=== PATIENT | male | born 1955 | race Hispanic/Latino ===

== ENCOUNTER 2017-09-24 12:55 | Emergency (ER) | payer MEDICARE ==
[~2017-09-24] VITALS: Ht 180.3 cm; Wt 114.3 kg
[~2017-09-24 12:55] MED LIST: MACROBID 100 M100 MG
--- OUTSIDE RECORDS SUMMARY | 2017-09-24 12:58 | XMS REPORT | Clinical Summary ---
Author Author [facility] Organization [facility] Address Unknown Phone Unavailable Care Team Providers Care Fagoter Name Role Phone Maite Leon MD PCP Allergies Active Allergy Reactions Severity Noted Date Comments Adhesive Rash Low 09/07/2013 Paper tape causes redness, bruising, irritation. Paper tape causes redness, bruising, irritation. Amlodipine Other (See Comments) 03/18/2013 swelling Extreme sweating (dripping) Extreme sweating (dripping) Fluoxetine Other (See Comments) 05/03/2014 Delayed ejaculation Delayed ejaculation Delayed ejaculation Latex Hives 11/21/2016 Levofloxacin Hives High 09/07/2013 Muscle cramps in extremities And severe cramps Levofloxacin (Bulk) Hives High 12/28/2012 And severe cramps Tramadol Rash High 01/25/2016 Changes in balance, facial rash, diaphoresis Changes in balance, facial rash, diaphoresis Current Medications Prescription Sig. Disp. Refills Start End Date Status Date WELLBUTRIN XL 150 mg 24 Take 150 mg by mouth 01/19/20 Active hr tablet every morning. 16 diphenhydrAMINE Take 25 mg by mouth Active (BENADRYL) 25 mg tablet nightly as needed. For sleep ketoconazole (NIZORAL) 2 Apply 2 application Active % shampoo topically 2 (two) times a week. Apply to damp skin, lather, leave on 5 minutes, and rinse methotrexate 2.5 MG Take 15 mg by mouth once 3 02/05/20 Active tablet a week. 17 folic acid (FOLVITE) 1 MG Take 1 tablet by mouth 11 02/05/20 Active tablet daily. 17 aspirin (ECOTRIN) 81 MG Take 81 mg by mouth Active enteric coated tablet daily. finasteride (PROSCAR) 5 Take 5 mg by mouth daily. 08/06/19 Active mg tablet 18 losartan (COZAAR) 100 MG Take 100 mg by mouth 0 07/23/19 Active tablet daily. 18 metoprolol succinate XL Take 1 tablet (25 mg 90 tablet 0 08/08/19 Active (TOPROL XL) 25 mg 24 hr total) by mouth daily for 18 18 tablet 90 days. sertraline (ZOLOFT) 50 MG Take 1 tablet (50 mg 90 tablet 0 08/08/19 11/07/19 Active tablet total) by mouth daily for 18 18 90 days. glycopyrrolate (ROBINUL) Take 1 tablet (1 mg 90 tablet 1 08/11/19 Active 1 mg tablet total) by mouth daily for 18 18 90 days. celecoxib (CeleBREX) 200 Take 1 tab PO daily. 30 capsule 0 08/14/19 Active MG capsule 18 testosterone cypionate Inject 1 mg into the 0 08/12/19 Active (DEPOTESTOTERONE shoulder, thigh, or 18 CYPIONATE) 200 mg/mL buttocks every 14 injection (fourteen) days. XELJANZ XR 11 mg tablet Take 1 tablet by mouth 08/30/19 Active extended release 24 hr daily. 18 VOLTAREN 1 % gel APPLY TOPICALLY 4 TIMES A 3 08/12/19 Active DAY FOR 30 DAYS 18 PROSCAR 5 mg tablet Take 5 mg by mouth daily. 01/19/20 03/18/20 Discontin 16 17 ued COZAAR 100 mg tablet Take 100 mg by mouth 01/19/20 03/18/20 Discontin daily. 16 17 ued testosterone cypionate testosterone cypionate 09/04/19 Discontin 200 mg/mL kit 200 mg/ml soln 18 ued aspirin (ECOTRIN) 81 MG Take 81 mg by mouth. 11/27/19 Discontin enteric coated tablet 17 ued atenolol (TENORMIN) 25 MG Take 1 tablet by mouth 04/23/20 01/23/20 Discontin tablet daily. 16 17 ued fluocinonide (LIDEX) 0.05 Apply 1 application 11/22/19 Discontin % ointment topically 2 (two) times a 17 ued day. celecoxib (CeleBREX) 200 1 po daily. Workers' 30 capsule 0 08/13/19 04/08/20 Discontin MG capsule comp. 17 17 ued clindamycin (CLEOCIN) 300 Take 600 mg by mouth 3 11/15/19 Discontin MG capsule (three) times a day. 17 ued metroNIDAZOLE (FLAGYL) Take 500 mg by mouth 3 11/22/19 Discontin 500 MG tablet (three) times a day. 17 ued glycopyrrolate (ROBINUL) Take 1 tablet (1 mg 90 tablet 1 09/11/19 1 mg tablet total) by mouth 3 (three) 17 17 times a day for 30 days. ZANAFLEX 4 mg tablet Take 1 tablet (4 mg 30 tablet 3 09/11/19 Discontin total) by mouth nightly 17 17 ued as needed for muscle spasms for up to 30 days. tiZANidine (ZANAFLEX) 4 TAKE 1 TABLET BY MOUTH 90 tablet 3 10/03/19 11/22/19 Discontin MG tablet ONCE NIGHTLY NEEDED 17 17 ued glycopyrrolate (ROBINUL) Take 1 tablet (1 mg 270 tablet 1 10/22/19 01/20/20 1 mg tablet total) by mouth 3 (three) 17 17 times a day for 90 days. ENGERIX-B, PF, 20 mcg/mL ADM 1ML IM UTD 0 08/09/19 11/15/19 Discontin syringe 17 17 ued HYDROcodone-acetaminophen Take 15 mL by mouth every 11/27/19 12/11/19 (HYCET) 2.5-108.3 mg/5 mL 6 (six) hours as needed 17 17 solution for moderate pain for up to 14 days. Max Daily Amount: 60 mL HYDROcodone-acetaminophen TK 15 ML PO Q 4 H PRN P 0 12/18/19 Discontin (HYCET) 2.5-108.3 mg/5 mL 17 17 ued solution atenolol (TENORMIN) 25 MG Take 1 tablet (25 mg 90 tablet 0 01/23/20 04/16/20 Discontin tablet total) by mouth daily for 17 17 ued 90 days. ENGERIX-B, PF, 20 mcg/mL ADM 1ML IM UTD 0 02/05/20 02/15/20 Discontin syringe 17 17 ued predniSONE (DELTASONE) 5 Take 1 tablet by mouth 0 02/05/20 05/08/20 Discontin mg tablet daily. 17 17 ued sertraline (ZOLOFT) 50 MG Take 1 tablet (50 mg 30 tablet 1 02/15/20 02/15/20 Discontin tablet total) by mouth daily for 17 17 ued 30 days. sertraline (ZOLOFT) 50 MG TAKE 1 TABLET(50 MG) BY 90 tablet 0 04/24/20 Discontin tablet MOUTH DAILY 17 17 ued COZAAR 100 mg tablet Take 1 tablet (100 mg 90 tablet 1 03/18/2012/07 Discontin total) by mouth daily for 17 17 ued 90 days. PROSCAR 5 mg tablet Take 1 tablet (5 mg 90 tablet 1 03/18/20 Discontin total) by mouth daily for 17 17 ued 90 days. glycopyrrolate (ROBINUL) Take 1 tablet (1 mg 90 tablet 1 03/18/20 Discontin 1 mg tablet total) by mouth 3 (three) 17 17 ued times a day for 90 days. glycopyrrolate (ROBINUL) Take 1 tablet (1 mg 270 tablet 1 03/20/20 06/18/20 1 mg tablet total) by mouth 3 (three) 17 17 times a day for 90 days. losartan (COZAAR) 100 MG Take 1 tablet (100 mg 90 tablet 1 03/25/20 06/23/20 tablet total) by mouth daily for 17 17 90 days. finasteride (PROSCAR) 5 Take 1 tablet (5 mg 90 tablet 1 03/25/2011/07 mg tablet total) by mouth daily for 17 17 90 days. celecoxib (CeleBREX) 200 1 po bid x 5 days, then 1 36 capsule 0 05/07/20 Discontin MG capsule po daily. Workers comp 17 17 ued atenolol (TENORMIN) 25 MG TAKE 1 TABLET(25 MG) BY 90 tablet 0 04/28/20 Discontin tablet MOUTH DAILY 17 17 ued sertraline (ZOLOFT) 50 MG Take 1 tablet (50 mg 90 tablet 0 04/24/20 07/23/19 tablet total) by mouth daily for 17 18 90 days. metoprolol succinate XL Take 1 tablet (25 mg 30 tablet 1 04/28/20 (TOPROL XL) 25 mg 24 hr total) by mouth daily for 17 17 tablet 30 days. celecoxib (CeleBREX) 200 1 po daily 30 capsule 0 05/07/20 07/17/20 Discontin MG capsule 17 17 ued FLUVIRIN [id number] 45 mcg ADM 0.5ML IM UTD 0 04/11/20 06/05/20 Discontin (15 mcg x 3)/0.5 mL 17 17 ued suspension diclofenac (VOLTAREN) 1 % Apply topically 4 (four) 100 g 3 06/05/20 07/05/20 gel times a day for 30 days. 17 17 metoprolol succinate XL Take 1 tablet (25 mg 90 tablet 0 06/10/20 Discontin (TOPROL XL) 25 mg 24 hr total) by mouth daily for 17 18 ued tablet 90 days. celecoxib (CeleBREX) 200 Take 1 tab PO daily. 30 capsule 0 07/17/20 08/14/19 Discontin MG capsule 17 18 ued varicella-zoster Inject 0.5 mL into the 1 each 0 09/04/19 09/04/19 [id number], PF, (SHINGRIX, shoulder, thigh, or 18 18 PF,) 50 mcg/0.5 mL buttocks once for 1 dose. suspension for reconstitution Active Problems Problem Noted Date Arthrodesis malunion 08/07/2017 BPH (benign prostatic hyperplasia) 08/07/2017 Hives 08/07/2017 HTN (hypertension) 08/07/2017 Hypogonadism male 08/07/2017 Spinal stenosis of lumbar region 08/07/2017 Spondylosis of lumbar region without myelopathy or radiculopathy 04/08/2017 Acute right-sided low back pain without sciatica 06/18/2016 S/P plastic surgery 04/11/2016 Lumbar post-laminectomy syndrome 04/11/2016 Major depressive disorder, single episode, in partial remission 11/29/2015 Type 2 diabetes mellitus without complication 11/29/2015 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 Weight loss 12/27/2014 Aorto-iliac atherosclerosis 12/16/2014 Cellulitis and abscess 08/23/2014 Overview: Overview: ICD-10 Abdominal wound dehiscence 08/12/2014 Gynecomastia 09/24/2013 Abdominal pannus 09/22/2013 Pannus, abdominal 09/22/2013 Encounters Date Type Specialty Care Team Description 09/04/2017 Office Visit Internal Medicine Maite Leon MD Rheumatoid arthritis with positive rheumatoid factor, involving unspecified site (Primary Dx); Screening-pulmonary TB; Hypogonadism in male; Immunization due; Vitamin D deficiency 08/14/2017 Orders Only Internal Medicine Maite Leon MD Rheumatoid arthritis involving both hands with positive rheumatoid factor (Primary Dx); Pain of foot, unspecified laterality 08/14/2017 Refill Orthopedic Surgery Ludmila León, BHARAT 08/11/2017 Orders Only Internal Medicine Maite Leon MD 08/08/2017 Orders Only Internal Medicine Maite Leon MD 08/08/2017 Refill Internal Medicine Maite Leon MD 08/08/2017 Refill Internal Medicine Maite Leon MD 08/07/2017 Office Visit Orthopedic Surgery Juvencio Payne MD Lumbar post-laminectomy syndrome (Primary Dx); Arthrodesis malunion, subsequent encounter 08/07/2017 Orders Only Orthopedic Surgery Asuncion Wallace 07/17/2017 Refill Orthopedic Surgery Ldumila León, BHARAT 06/10/2017 Orders Only Internal Medicine Maite Leon MD 06/10/2017 Telephone Internal Medicine Aurora Teresa MA 06/05/2017 Office Visit Internal Medicine Maite Leon MD Essential hypertension (Primary Dx); Vitamin D deficiency; Pain in both hands; Need for Streptococcus pneumoniae vaccination 05/08/2017 Office Visit Orthopedic Surgery Juvencio Payne MD Lumbar post-laminectomy syndrome; Arthrodesis status 05/07/2017 Refill Orthopedic Surgery Juvencio Payne MD 04/28/2017 Orders Only Internal Medicine Maite Leon MD 04/25/2017 Telephone Internal Medicine Aurora Teresa MA 04/24/2017 Orders Only Internal Medicine Maite Leon MD 04/23/2017 Refill Internal Medicine Maite Leon MD 04/16/2017 Refill Internal Medicine Maite Leon MD 04/10/2017 [facility]iology Qi Ferrari MD Multinodular thyroid Encounter 04/08/2017 Office Visit Orthopedic Surgery Juvencio Payne MD Lumbar post-laminectomy syndrome (Primary Dx); Arthrodesis status; Spondylosis of lumbar region without myelopathy or radiculopathy 03/28/2017 Transcribe Access Qi Ferrari MD Multinodular thyroid Orders (Primary Dx) 03/25/2017 Orders Only Internal Maite Preciado MD 03/20/2017 Orders Only Internal Maite Preciado MD 03/18/2017 Telephone [facility] Julia Iversno LVN 03/17/2017 Office Visit Internal Medicine Maite Leon MD Essential hypertension (Primary Dx); Dysthymia; Hyperglycemia; Pure hypercholesterolemia; Bone disorder 02/14/2017 Office Visit Internal Medicine Maite Leon MD Rheumatoid arthritis with positive rheumatoid factor, involving unspecified site (Primary Dx); Reactive depression 02/14/2017 Refill Internal Maite Preciado MD 01/24/2017 Orders Only Internal Maite Preciado MD Rheumatoid arthritis with positive rheumatoid factor, involving unspecified site (Primary Dx) 01/22/2017 Office Visit Internal Medicine Maite Leon MD Hand pain, not arthralgia, unspecified laterality (Primary Dx); Acute pain of left shoulder; Weight gain 01/14/2017 Office Visit Orthopedic Surgery Juvencio Payne MD Arthrodesis status (Primary Dx); Lumbar post-laminectomy syndrome 12/17/2016 Office Visit Orthopedic Surgery Juvencio Payne MD Arthrodesis status (Primary Dx); Lumbar post-laminectomy syndrome; Pain of right hip joint 11/26/2016 Hospital General Surgery Jois Pratt MD Tonsillar hypertrophy Encounter 11/26/2016 Anesthesia General Surgery Dustin Najera Event MD 11/26/2016 Procedure Pass General Surgery 11/26/2016 Surgery General Surgery Josi Pratt MD TONSILLECTOMY 11/14/2016 Office Visit Internal Medicine Maite Leon MD Essential hypertension (Primary Dx); Screening for cardiovascular condition; Prostate cancer screening; Non morbid obesity due to excess calories 10/21/2016 Orders Only Internal Maite Preciado MD 10/21/2016 Refill Internal Maite Preciado MD 10/10/2016 Office Visit Orthopedic Surgery Juvencio Payne MD Arthrodesis status (Primary Dx); Lumbar post-laminectomy syndrome 10/02/2016 Refill Internal Medicine Maite Leon MD after 09/23/2016 Immunizations Name Dates Previously Given Next Due Hep B, Unspecified 06/24/2016 Hepatitis B 02/04/2017, 08/09/2016, 06/08/2016 INFLUENZA QUAD 04/08/2016, 04/03/2015, 05/03/2014 INFLUENZA QUAD PF 08/18/2013 Influenza Trivalent 04/11/2017, 05/29/2016, 04/08/2016 Pneumococcal Conjugate 04/08/2016 13-Valent Pneumococcal 06/05/2017, 05/29/2016 Polysaccharide Tetanus 01/31/2012 Family History Medical History Relation Name Comments Esophagitis Father vein disorder Hypertension Father Hypertension Mother No Known Problems Sister Obesity Sister Thyroid nodules Sister Relation Name Status Comments Father (Age 52) Mother Alive Sister Alive Sister Alive Social History Tobacco Use Types Packs/Day Years Used Date Former Smoker Cigarettes 1 5 Quit: 07/21/1991 Smokeless Tobacco: Never Used Comments: smoked for 4-5 years Alcohol Use Drinks/Week oz/Week Comments Yes social beer Sex Assigned at Date Recorded Not on file Last Filed Vital Signs Vital Sign Reading Time Taken Blood Pressure 122/76 09/04/2017 11:16 AM [employer] Pulse 77 09/04/2017 11:16 AM [employer] Temperature 36.8 C (98.2 F) 09/04/2017 11:16 AM [employer] Respiratory Rate 16 09/04/2017 11:16 AM [employer] Oxygen Saturation 98% 09/04/2017 11:16 AM [employer] Inhaled Oxygen - - Concentration Weight 108 kg (239 lb) 09/04/2017 11:16 AM [employer] Height 180.3 cm (5' 11") 09/04/2017 11:16 AM [employer] Body Mass Index 33.33 09/04/2017 11:16 AM [employer] Plan of Treatment Date Type Specialty Care Team Description 11/06/2017 Office Visit Orthopedic Surgery Juvencio Payne MD [address] [facility] [address] [place] [address] 12/02/2017 Office [place] [address] [place] [address] Health Maintenance Due Date Last Done Comments FOOT EXAM 10/18/1967 OPHTHALMOLOGY EXAM 10/18/1967 URINE MICROALBUMIN 10/18/1967 COLONOSCOPY 02/12/2023 02/12/2013 INFLUENZA VACCINE Completed 04/11/2017, 05/29/2016, 04/08/2016, Additional history exists Procedures Procedure Name Priority Date/Time Associated Diagnosis Comments CA AN ELECTIVE Routine 11/26/2016 ENDOTRACHEAL AIRWAY 10:48 AM CDT Procedure Note - Jodi Gutierrez - 11/26/2016 10:47 AM CDT Airway Date/Time: 11/26/2016 10:21 AM Performed by: DUSTIN NAJERA Authorized by: DUSTIN NAJERA Location: OR Urgency: Elective Difficult Airway: No Other Anesthesia Staff: JODI GUTIERREZ Preoxygena rambo with 100% O2: Yes Mask Ventilatio n: Easy mask (easy BMV w/ OA) Final Airway Type: Endotrache al airway Final Endotrache al Airway: RAOUL tube Cuffed: Yes Technique Used: Direct laryngosco py Insertion Site: Oral Blade Type: Moraima Laryngosco pe Blade/Vide olaryngosc ope Blade Size: 3 Cuff at minimum occlusion pressure: Yes Measured from: Lips ETT to Lips (cm): 22 Placement Verified by: CO2 detection, direct visualizat ion and equal breath sounds Laryngosco pic view: Grade I - full view of glottis Rapid Sequence Induction (RSI): No Number of Attempts at Approach: 1 UVULOPALATOPHARYNGOPLASTY 11/26/2016 BARBARA (obstructive sleep (UPPP) 9:30 AM CDT apnea) TONSILLECTOMY 11/26/2016 BARBARA (obstructive sleep 9:30 AM CDT apnea) after 09/23/2016 Results * TB GOLD Quantiferon (09/04/2017 12:17 PM) Component Value Ref Range Quantiferon TB gold NEGATIVE NEGATIVE Comment: Negative test result. M. tuberculosis complex infection unlikely. Quantiferon NIL value 0.05 IU/mL Quantiferon mitogen NIL >10.00 IU/mL value Quantiferon TB NIL value 0.03 IU/mL Comment: The Nil tube value is used to determine if the patient has a preexisting immune response which could cause a false-positive reading on the test. In order for a test to be valid, the Nil tube must have a value of less than or equal to 8.0 IU/mL. The mitogen control tube is used to assure the patient has a healthy immune status and also serves as a control for correct blood handling and incubation. It is used to detect false-negative readings. The mitogen tube must have a gamma interferon value of greater than or equal to 0.5 IU/mL higher than the value of the Nil tube. The TB antigen tube is coated with the M. tuberculosis specific antigens. For a test to be considered positive, the TB antigen tube value minus the Nil tube value must be greater than or equal to 0.35 IU/mL. For additional information, please refer to http://education.Spacious App.SEC Watch/faq/QFT (This link is being provided for informational/ educational purposes only.) Specimen Performing Laboratory [facility] * Vitamin D 25 hydroxy level (09/04/2017 12:17 PM) Only the most recent of 2 results within the time period is included. Component Value Ref Range Vitamin D, 25-hydroxy 38 30 - 100 ng/mL Comment: Vitamin D Status 25-OH Vitamin D: Deficiency: <20 ng/mL Insufficiency: 20 - 29 ng/mL Optimal: > or=30 ng/mL For 25-OH Vitamin D testing on patients on D2-supplementation and patients for whom quantitation of D2 and D3 fractions is required, the QuestAssureD(TM) 25-OH VIT D, (D2,D3), LC/MS/MS is recommended: order code 83393 (patients >2yrs). For more information on this test, go to: http://education.Spacious App.SEC Watch/faq/GQY883 (This link is being provided for informational/educational purposes only.) Specimen Performing Laboratory [facility] * CBC with platelet and differential (09/04/2017 12:17 PM) Only the most recent of 2 results within the time period is included. Component Value Ref Range WBC 6.3 3.8 - 10.8 Thousand/uL RBC 4.87 4.20 - 5.80 Million/uL HGB 16.1 13.2 - 17.1 g/dL HCT 46.9 38.5 - 50.0 % MCV 96.3 80.0 - 100.0 fL MCH 33.1 (H) 27.0 - 33.0 pg MCHC 34.3 32.0 - 36.0 g/dL RDW 12.1 11.0 - 15.0 % Platelet count 385 140 - 400 Thousand/uL MPV 9.7 7.5 - 12.5 fL Neutrophils, absolute 3,389 1,500 - 7,800 cells/uL Lymphocytes, absolute 1,934 850 - 3,900 cells/uL Monocytes, absolute 548 200 - 950 cells/uL Eosinophils, absolute 391 15 - 500 cells/uL Basophils, absolute 38 0 - 200 cells/uL Neutrophils 53.8 % Lymphocytes 30.7 % Monocytes 8.7 % Eosinophils 6.2 % Basophils + RC 0.6 % Specimen Performing Laboratory [facility] * Comprehensive metabolic panel (09/04/2017 12:17 PM) Only the most recent of 3 results within the time period is included. Component Value Ref Range Glucose 84 65 - 99 mg/dL Comment: Fasting reference interval BUN, whole blood 15 7 - 25 mg/dL Creatinine 0.89 0.70 - 1.33 mg/dL Comment: For patients >49 years of age, the reference limit for Creatinine is approximately 13% higher for people identified as -Panamanian. EGFR Non-Afr. Panamanian 94 > OR=60 mL/min/1.73m2 EGFR 108 > OR=60 mL/min/1.73m2 BUN/creatinine ratio NOT APPLICABLE 6 - 22 (calc) Sodium 136 135 - 146 mmol/L Potassium 4.5 3.5 - 5.3 mmol/L Chloride 101 98 - 110 mmol/L CO2 28 20 - 31 mmol/L Calcium 9.4 8.6 - 10.3 mg/dL Protein 7.1 6.1 - 8.1 g/dL Albumin, S 4.0 3.6 - 5.1 g/dL Globulin, total 3.1 1.9 - 3.7 g/dL (calc) Albumin/globulin ratio 1.3 1.0 - 2.5 (calc) Total bilirubin 0.9 0.2 - 1.2 mg/dL Alkaline phosphatase 86 40 - 115 U/L AST 17 10 - 35 U/L ALT 13 9 - 46 U/L Specimen Performing Laboratory [facility] * Pneumococcal polysaccharide vaccine 23-valent greater than or equal to 2yo subcutaneous/IM (06/05/2017 11:11 AM) * Urinalysis, automated with microscopy (05/07/2017) Only the most recent of 2 results within the time period is included. Component Value Ref Range Color, UA DARK YELLOW YELLOW Appearance CLEAR CLEAR Specific gravity, urine 1.025 1.001 - 1.035 pH, urine 6.0 5.0 - 8.0 Glucose, urine NEGATIVE NEGATIVE Bilirubin, UA NEGATIVE NEGATIVE Ketones, UA NEGATIVE NEGATIVE Occult blood, urine NEGATIVE NEGATIVE Protein, UA NEGATIVE NEGATIVE Nitrite, UA NEGATIVE NEGATIVE Leukocyte esterase, UA NEGATIVE NEGATIVE WBC, UA NONE SEEN < OR=5 /HPF RBC, UA 0-2 < OR=2 /HPF Squamous epithelial NONE SEEN < OR=5 /HPF cells, UA Bacteria, UA NONE SEEN NONE SEEN /HPF Hyaline casts, UA NONE SEEN NONE SEEN /LPF Specimen Performing Laboratory [facility] * Sedimentation rate (05/07/2017) Only the most recent of 2 results within the time period is included. Component Value Ref Range Sedimentation rate 6 < OR=20 mm/h Specimen Performing Laboratory [facility] * Lipid panel (05/07/2017) Only the most recent of 2 results within the time period is included. Component Value Ref Range Cholesterol, total 191 <200 mg/dL HDL cholesterol 65 >40 mg/dL Triglycerides 106 <150 mg/dL LDL cholesterol 106 (H) mg/dL (calc) calculated Comment: Reference range: <100 Desirable range <100 mg/dL for patients with CHD or diabetes and <70 mg/dL for diabetic patients with known heart disease. LDL-C is now calculated using the Deshawn-Tong calculation, which is a validated novel method providing better accuracy than the Friedewald equation in the estimation of LDL-C. Deshawn SS et al. JANNA. 2013;310(19): 7061-5830 (http://education.Test.tv.SEC Watch/faq/YYO337) Cholesterol/HDL ratio 2.9 <5.0 (calc) Non-HDL cholesterol 126 <130 mg/dL (calc) Comment: For patients with diabetes plus 1 major ASCVD risk factor, treating to a non-HDL-C goal of <100 mg/dL (LDL-C of <70 mg/dL) is considered a therapeutic option. Specimen Performing Laboratory [facility] * US Thyroid (04/10/2017 2:20 PM) Specimen Performing Laboratory [facility] [address] [place] [id number] Narrative EXAMINATION:US THYROID CLINICAL HISTORY:E04.2 Nontoxic multinodular goiter, multinodular thyroid COMPARISON:Thyroid ultrasound August 26, 2016 Real-time ultrasound images performed. Permanent ultrasound images obtained for the patient's record. FINDINGS: Right thyroid lobe is enlarged to 7.9 cm x 3.6 cm x 4.5 cm. Right thyroid is considerably heterogeneous in appearance. There is a 1.5 cm hypoechoic solid nodule right posterior mid nodule. This is similar to previous. Numerous small subcentimeter nodules are stable as well. Left lobe thyroid 8.2 cm x 3.4 cm x 5.6 cm. The left lobe of the thyroid is considerably heterogeneous in appearance as on previous. 1.7 cm complex cystic nodule superior mid gland similar to previous. 1.0 cm complex nodule lateral mid gland similar to previous Numerous underlying small less than 1 cm nodules similar in appearance Isthmus 1.2 cm. Isthmus heterogeneous in appearance without definitive nodule IMPRESSION: Considerably enlarged goitrous thyroid similar in appearance to 08/26/2016. Stable bilateral nodules No new abnormalities Continued ultrasound follow-up recommended [id number] Procedure Note Hm Interface, Radiology Results Incoming - 04/10/2017 4:17 PM CDT EXAMINATION: US THYROID CLINICAL HISTORY: E04.2 Nontoxic multinodular goiter, multinodular thyroid COMPARISON: Thyroid ultrasound August 26, 2016 Real-time ultrasound images performed. Permanent ultrasound images obtained for the patient's record. FINDINGS: Right thyroid lobe is enlarged to 7.9 cm x 3.6 cm x 4.5 cm. Right thyroid is considerably heterogeneous in appearance. There is a 1.5 cm hypoechoic solid nodule right posterior mid nodule. This is similar to previous. Numerous small subcentimeter nodules are stable as well. Left lobe thyroid 8.2 cm x 3.4 cm x 5.6 cm. The left lobe of the thyroid is considerably heterogeneous in appearance as on previous. 1.7 cm complex cystic nodule superior mid gland similar to previous. 1.0 cm complex nodule lateral mid gland similar to previous Numerous underlying small less than 1 cm nodules similar in appearance Isthmus 1.2 cm. Isthmus heterogeneous in appearance without definitive nodule IMPRESSION: Considerably enlarged goitrous thyroid similar in appearance to 08/26/2016. Stable bilateral nodules No new abnormalities Continued ultrasound follow-up recommended [id number] * KOKI CASCADING REFLEX (01/22/2017 2:26 PM) Component Value Ref Range KOKI screen NEGATIVE NEGATIVE Comment: A negative KOKI Multiplex, with Reflex to 11 Antibody S[place]uma indicates the absence of detectable antibodies to component analytes consisting of double stranded DNA (dsDNA), chromatin, ribonucleoprotein (HYPERION ADMINISTRATOR), León/HYPERION ADMINISTRATOR (Sm/HYPERION ADMINISTRATOR), León (Sm), SS-A, SS-B, Shirin-1, centromere B, Scl-70 and ribosomal P. A negative result should be interpreted in the context of the clinical and laboratory findings and does not rule out autoimmune disease characterized by other autoantibody specificities such as rheumatoid arthritis, autoimmune hepatitis, primary biliary cirrhosis, autoimmune thyroiditis, [place]'s disease, pernicious anemia, autoimmune neuropathies, vasculitis, celiac disease, and bullous disease. Visit Physician FAQs for interpretation of all antibodies in the [place], prevalence, and association with diseases at [email or web address]://[email or web address]/ [email or web address]/[email or web address] Specimen Performing Laboratory [facility] * Cyclic citrullinated peptide antibody, IgG (01/22/2017 2:26 PM) Component Value Ref Range Cyclic citrullin peptide >250 (H) UNITS Ab Comment: Reference Range Negative: <20 Weak Positive: 20-39 Moderate Positive: 40-59 Strong Positive: >59 Specimen Performing Laboratory [facility] * Rheumatoid factor (01/22/2017 2:26 PM) Component Value Ref Range Rheumatoid factor 173 (H) <14 IU/mL Comment: Verified by repeat analysis. Specimen Performing Laboratory [facility] * C-reactive protein (01/22/2017 2:26 PM) Component Value Ref Range CRP 3.19 (H) <0.80 mg/dL Comment: Please be advised that patients taking Carboxypenicillins may exhibit falsely decreased C-Reactive Protein levels due to an analytical interference in this assay. Specimen Performing Laboratory [facility] * XR Hip 2-3 View Right (12/17/2016 5:00 PM) Specimen Performing Laboratory [facility] [address] [place] [address] Narrative X-ray of the right hip reveals a normal acetabular configuration and normal femoral head. No significant degenerative changes are noted. * XR Lumbar Spine 2 Or 3 Vw (12/17/2016 5:00 PM) Specimen Performing Laboratory [facility] [address] [place] [address] Narrative Lumbar spine x-rays demonstrate internal fixation devices at L3-L4. Postsurgical changes are noted from L4 to the sacrum. On the lateral view, the L2-3 disc is moderately degenerated and slightly narrowed more posteriorly than anteriorly * Surgical pathology request (11/26/2016 10:46 AM) Component Value Ref Range Surgical pathology report See link below for PDF Lab Report Specimen Performing Laboratory [facility] [address] [place] [address] * ECG 12 lead (11/21/2016 2:52 PM) Component Value Ref Range Ventricular rate 77 Atrial rate 77 CA interval 156 QRSD interval 88 QT interval 386 QTC interval 436 P axis 1 65 QRS axis 1 51 T wave axis 35 EKG impression Normal sinus rhythm-Normal ECG-No previous ECGs available- Specimen Performing Laboratory [facility] [address] [place] [id number] * Partial thromboplastin time, activated (11/21/2016 2:29 PM) Component Value Ref Range PTT 30.6 23.0 - 36.0 sec Comment: PTT therapeutic range for unfractionated heparin is 61.0-112.0 seconds which corresponds to Anti-Xa 0.3-0.7 U/ml. Specimen Performing Laboratory Blood [facility] AND [address] [place] [address] * Prothrombin time with INR (11/21/2016 2:29 PM) Component Value Ref Range Prothrombin time 14.1 12.0 - 15.0 sec INR 1.1 Comment: The International Normalized Ratio (INR) is a therapeutic monitoring tool for patients who are stable on oral anticoagulant therapy. An INR of 2.0-3.0 is suggested for deep vein thrombosis/pulmonary embolism. Specimen Performing Laboratory Blood [facility] AND [address] [place] [address] * Thyroid stimulating hormone (11/14/2016 11:09 AM) Component Value Ref Range TSH 0.56 0.40 - 4.50 mIU/L Specimen Performing Laboratory [facility] Narrative FASTING:YES * Prostate specific antigen (11/14/2016 11:09 AM) Component Value Ref Range PSA 1.7 < OR=4.0 ng/mL Comment: This test was performed using the Siemens chemiluminescent method. Values obtained from different assay methods cannot be used interchangeably. PSA levels, regardless of value, should not be interpreted as absolute evidence of the presence or absence of disease. Specimen Performing Laboratory [facility] Narrative FASTING:YES after 09/23/2016 Insurance Payer Benefit Subscriber ID Type Phone Address Plan / Group WORKERS COMP MISC xxxxx Workers WORKER'S Comp COMP AETNA MEDICARE AETNA xxxxxxxx HMO MEDICARE HMO/PPO [facility] Home: [id number] Workers Employer 1955 [place]: [place] [address] Home:
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
[2017-09-24 15:17] VITALS: BP 127/76
== END 2017-09-24 15:27 | disposition home or self-care (01) ==
LOC: ER 12:55
DX: M54.6 Pain in thoracic spine (principal); M54.5 Low back pain; S33.5XXA Sprain of ligaments of lumbar spine, initial encounter; V43.52XA Car driver injured in collision with other type car in traffic accident, initial encounter; Y92.481 Parking lot as the place of occurrence of the external cause
CPT/HCPCS: 72100; 99282

== ENCOUNTER 2018-05-03 03:05 | Emergency (ER) | payer MEDICARE ==
[~2018-05-03] VITALS: Ht 180.3 cm; Wt 114.3 kg
--- NOTE | 2018-05-03 05:02 | Diagnostic Imaging Report ---
Exam: Head CT without contrast History: Headache Comparison studies: None Technique: Axial images were obtained from the skull base to the vertex. Coronal and sagittal images reconstructed from the axial data. Dose modulation, iterative reconstruction, and/or weight based adjustment of the mA/kV was utilized to reduce the radiation dose to as low as reasonably achievable. Radiation dose: Total DLP: 921 mGy*cm. Estimated effective dose: DLP x 0.015 Intravenous contrast: None Findings: Scalp: No abnormalities. Bones: No fractures, blastic or lytic lesions. Brain sulci: Frontal sulci are mildly prominent. Remaining sulci are of normal limits for age. Ventricles: Mild compensatory dilatation of the frontal horns of the lateral ventricles. No hydrocephalus. Extra-axial spaces: No masses, no fluid collection. Parenchyma: No mass, acute hemorrhage or acute or chronic cortical vascular insults. Subtle hypodensity in the right parietal bolden radiata is nonspecific and may reflect age-indeterminate nonhemorrhagic lacunar insult or mild chronic microvascular ischemic changes.. Sellar/suprasellar region: No abnormalities. Craniocervical junction: Patent foramen magnum. No Chiari one malformation. IMPRESSION: 1. No acute intracranial hemorrhage or acute cortical vascular insults. 2. Age-indeterminate lacunar insult versus mild chronic microvascular ischemic changes in the right parietal bolden radiata. 3. Mild bifrontal volume loss. Signed by: Dr. Damien Li M.D. on 05/03/2018 4:59 AM
[2018-05-03 06:05] VITALS: BP 129/93
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
--- OUTSIDE RECORDS SUMMARY | 2018-05-05 13:54 | XMS REPORT | Clinical Summary ---
Author Author [employer] Address Unknown Phone Unavailable Care Team Providers Care Carrot Tier Name Role Phone Maite Leon MD PCP Allergies Active Allergy Reactions Severity Noted Date Comments Adhesive Rash Low 09/07/2013 Paper tape causes redness, bruising, irritation. Paper tape causes redness, bruising, irritation. Amlodipine Other (See Comments) Medium 03/18/2013 swelling Extreme sweating (dripping) Extreme sweating (dripping) Fluoxetine Other (See Comments) Medium 05/03/2014 Delayed ejaculation Delayed ejaculation Delayed ejaculation Latex Hives Medium 11/21/2016 Levofloxacin Hives High 09/07/2013 Muscle cramps [...] minutes, and rinse methotrexate 2.5 MG Take 7.5 mg by mouth once 3 02/05/20 Active tablet a week. 17 folic acid (FOLVITE) 1 MG Take 1 tablet by mouth 11 02/05/20 Active tablet daily. 17 aspirin (ECOTRIN) 81 MG Take 81 mg by mouth Active enteric coated tablet daily. testosterone cypionate Inject 1 mg into the 0 08/12/19 Active (DEPOTESTOTERONE shoulder, thigh, or 18 CYPIONATE) 200 mg/mL buttocks every 14 injection (fourteen) days. XELJANZ XR 11 mg tablet Take 1 tablet by mouth 08/30/19 Active extended release 24 hr daily. 18 finasteride (PROSCAR) 5 TAKE 1 TABLET BY MOUTH 90 tablet 0 02/10/20 Active mg tablet EVERY DAY 18 sertraline (ZOLOFT) 50 MG TAKE 1 TABLET BY MOUTH 90 tablet 0 02/10/20 Active tablet ONCE A DAY 18 metoprolol succinate XL TAKE 1 TABLET BY MOUTH 90 tablet 0 02/14/20 Active (TOPROL-XL) 25 mg 24 hr EVERY DAY 18 tablet glycopyrrolate (ROBINUL) TAKE 1 TABLET BY MOUTH 270 tablet 0 02/17/20 Active 1 mg tablet THREE TIMES A DAY 18 ammonium lactate Apply 2 application 1 01/17/20 Active (AMLACTIN) 12 % cream topically daily. 18 diclofenac sodium 3 % gel Apply 4 application 02/26/20 Active topically 4 (four) times 18 a day. Both hands, both ankles chlorhexidine (PERIDEX) SWISH AND SPIT 10 ML BY 3 02/14/20 Active 0.12 % solution MOUTH TWICE A DAY FOR 2 18 MINUTES losartan (COZAAR) 100 MG TAKE 1 TABLET BY MOUTH 90 tablet 0 04/01/20 Active tablet EVERY DAY 18 testosterone cypionate testosterone cypionate 09/04/19 Discontin 200 mg/mL kit 200 mg/ml soln 18 ued predniSONE (DELTASONE) 5 Take 1 tablet by mouth 0 02/05/20 05/08/20 Discontin mg tablet daily. 17 17 ued glycopyrrolate (ROBINUL) Take 1 [...] 1 tablet (5 mg 90 tablet 1 03/25/20 06/23/20 mg tablet total) by mouth daily for 17 17 90 days. celecoxib (CeleBREX) 200 1 po bid x 5 days, then 1 36 capsule 0 04/08/20 05/07/20 Discontin MG capsule po daily. Workers comp 17 17 ued sertraline (ZOLOFT) 50 MG Take 1 tablet (50 mg 90 tablet 0 04/24/20 07/23/19 tablet total) by mouth daily for 17 18 90 days. metoprolol succinate XL Take 1 tablet (25 mg 30 tablet 1 04/28/20 05/28/20 (TOPROL XL) 25 mg 24 hr total) by mouth daily for 17 17 tablet 30 days. celecoxib (CeleBREX) 200 1 po daily 30 capsule 0 05/07/20 07/17/20 Discontin MG capsule 17 17 ued FLUVIRIN [id number] 45 mcg ADM 0.5ML IM UTD 0 04/11/20 06/05/20 Discontin (15 mcg x 3)/0.5 mL 17 17 ued suspension diclofenac (VOLTAREN) 1 % Apply topically 4 (four) 100 g 3 06/05/20 07/05/20 gel times a day for 30 days. 17 17 metoprolol succinate XL Take 1 tablet (25 mg 90 tablet 0 06/10/20 08/08/19 Discontin (TOPROL XL) 25 mg 24 hr total) by mouth daily for 17 18 ued tablet 90 days. celecoxib (CeleBREX) 200 Take 1 tab PO daily. 30 capsule 0 07/17/20 08/14/19 Discontin MG capsule 17 18 ued finasteride (PROSCAR) 5 Take 5 mg by mouth daily. 08/06/19 10/25/19 Discontin mg tablet 18 18 ued losartan (COZAAR) 100 MG Take 100 mg by mouth 0 07/23/19 10/08/19 Discontin tablet daily. 18 18 ued metoprolol succinate XL Take 1 tablet (25 mg 90 tablet 0 08/08/19 11/19/19 Discontin (TOPROL XL) 25 mg 24 hr total) by mouth daily for 18 18 ued tablet 90 days. sertraline (ZOLOFT) 50 MG Take 1 tablet (50 mg 90 tablet 0 08/08/19 10/25/19 Discontin tablet total) by mouth daily for 18 18 ued 90 days. glycopyrrolate (ROBINUL) Take 1 tablet (1 mg 90 tablet 1 08/11/19 11/10/19 1 mg tablet total) by mouth daily for 18 18 90 days. celecoxib (CeleBREX) 200 Take 1 tab PO daily. 30 capsule 0 08/14/19 12/10/19 Discontin MG capsule 18 18 ued VOLTAREN 1 % gel APPLY TOPICALLY 4 TIMES A 3 08/12/19 12/10/19 Discontin DAY FOR 30 DAYS 18 18 ued varicella-zoster Inject 0.5 mL into the 1 each 0 09/04/19 09/04/19 [id number], PF, (SHINGRIX, shoulder, thigh, or 18 18 PF,) 50 mcg/0.5 mL buttocks once for 1 dose. suspension for reconstitution losartan (COZAAR) 100 MG TAKE 1 TABLET BY MOUTH 90 tablet 0 10/08/19 01/03/20 Discontin tablet EVERY DAY 18 18 ued finasteride (PROSCAR) 5 TAKE 1 TABLET BY MOUTH 90 tablet 0 10/25/19 01/24/20 Discontin mg tablet EVERY DAY 18 18 ued sertraline (ZOLOFT) 50 MG TAKE 1 TABLET BY MOUTH 90 tablet 0 10/25/19 01/24/20 Discontin tablet ONCE A DAY 18 18 ued metoprolol succinate XL TAKE 1 TABLET BY MOUTH 90 tablet 0 11/19/19 02/14/20 Discontin (TOPROL-XL) 25 mg 24 hr EVERY DAY 18 18 ued tablet glycopyrrolate (ROBINUL) TAKE 1 TABLET BY MOUTH 3 270 tablet 0 11/20/19 02/16/20 Discontin 1 mg tablet TIMES A DAY 18 18 ued losartan (COZAAR) 100 MG TAKE 1 TABLET BY MOUTH 90 tablet 0 01/03/20 04/01/20 Discontin tablet ONCE A DAY 18 18 ued butorphanol (STADOL) 10 1 spray intranasally q 6 2.5 mL 0 01/09/20 01/23/20 mg/mL nasal spray hours prn pain. 18 18 sertraline (ZOLOFT) 50 MG TAKE 1 TABLET BY MOUTH 90 tablet 0 01/24/20 03/02/20 Discontin tablet ONCE A DAY 18 18 ued finasteride (PROSCAR) 5 TAKE 1 TABLET BY MOUTH 90 tablet 0 01/24/20 03/02/20 Discontin mg tablet EVERY DAY 18 18 ued SHINGRIX, PF, 50 mcg/0.5 TO BE ADMINISTERED BY 0 01/17/20 03/02/20 Discontin mL suspension for PHARMACIST FOR 18 18 ued reconstitution IM IMMUNIZATION injection tiZANidine (ZANAFLEX) 2 Take 1 tablet (2 mg 30 tablet 1 03/02/20 04/01/20 MG tablet total) by mouth nightly 18 18 for 30 days. triamcinolone (KENALOG) Apply topically 2 (two) 30 g 0 03/02/20 03/23/20 0.1 % ointment times a day for 21 days. 18 18 butorphanol (STADOL) 10 1 spray into each nostril 2.5 mL 1 04/20/20 04/27/20 mg/mL nasal spray every 6 (six) hours as 18 18 needed for moderate pain for up to 7 days. Active Problems Problem Noted Date Status post spinal arthrodesis 12/09/2017 Arthrodesis malunion (HCC) 08/07/2017 BPH (benign prostatic hyperplasia) 08/07/2017 Hives 08/07/2017 HTN (hypertension) 08/07/2017 Hypogonadism male 08/07/2017 Spinal stenosis of lumbar region 08/07/2017 Spondylosis of lumbar region without myelopathy or radiculopathy 04/08/2017 Acute right-sided low back pain without sciatica 06/18/2016 S/P plastic surgery 04/11/2016 Lumbar post-laminectomy syndrome 04/11/2016 Major depressive disorder, single episode, in partial remission (HCC) 11/29/2015 Type 2 diabetes mellitus without complication (HCC) 11/29/2015 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 Weight loss 12/27/2014 Aorto-iliac atherosclerosis (HCC) 12/16/2014 Cellulitis and abscess 08/23/2014 Overview: Overview: ICD-10 Abdominal wound dehiscence 08/12/2014 Gynecomastia 09/24/2013 Abdominal pannus 09/22/2013 Pannus, abdominal 09/22/2013 Encounters Date Type Specialty Care Team Description 04/28/2018 Transcribe Access Qi Ferrari MD Nontoxic multinodular Orders goiter (Primary Dx) 04/20/2018 Telephone Orthopedic Surgery Belen Mohamud PA-C 04/01/2018 Refill Internal Medicine Maite Leon MD 03/11/2018 Office Visit Orthopedic Surgery Juvencio Payne MD Spondylosis of lumbar region without myelopathy or radiculopathy (Primary Dx); Status post spinal arthrodesis 03/02/2018 Office Visit Internal Medicine Maite Leon MD Chronic right-sided low back pain without sciatica (Primary Dx); Skin irritation 02/15/2018 Refill Internal Maite Preciado MD 02/13/2018 Refill Internal Maite Preciado MD 02/07/2018 Refill Internal Maite Preciado MD 01/23/2018 Refill Internal Maite Preciado MD 01/08/2018 Orders Only Orthopedic Surgery Belen Mohamud, PAMarcela 01/07/2018 Telephone Orthopedic Surgery Ludmila León RN 01/02/2018 Refill Internal Matie Preciado MD 12/10/2017 Abstract Orthopedic Surgery Juvencio Payne MD 12/09/2017 Office Visit Orthopedic Surgery Juvencio Payne MD Lumbar post-laminectomy syndrome (Primary Dx); Status post spinal arthrodesis; Arthrodesis malunion, subsequent encounter 12/02/2017 Office Visit Internal Maite Preciado MD Encounter for preventative adult health care exam with abnormal findings (Primary Dx); Essential hypertension; Thyroid nodule; Encounter for lipid screening for cardiovascular disease; Chest wall pain; Skin nodule 11/19/2017 Dianeill Internal Maite Preciado MD 11/18/2017 Refill Internal Maite Preciado MD 11/12/2017 Hospital Radiology Qi Ferrari MD Multinodular non-toxic Encounter goiter 11/08/2017 Transcribe Access Qi Ferrari MD Multinodular non-toxic Orders goiter (Primary Dx) 10/24/2017 Orders Only Internal Maite Preciado MD Thyroid nodule (Primary Dx) 10/24/2017 Refill Internal Maite Preciado MD 10/07/2017 Office Visit Orthopedic Surgery Juvencio Payne MD Postsurgical arthrodesis status (Primary Dx); Lumbar post-laminectomy syndrome 10/07/2017 Refill Internal Maite Preciado MD 09/29/2017 Orders Only Internal Medicine Maite Leon MD Chronic low back pain, unspecified back pain laterality, with sciatica presence unspecified (Primary Dx) 09/04/2017 Office Visit Internal Medicine Maite Leon [...] Surgery Asuncion Wallace 07/17/2017 Refill Orthopedic Surgery Ludmila León, BHARAT 06/10/2017 Orders Only Internal Medicine Maite Leon MD 06/10/2017 Telephone Internal Medicine Aurora Teresa MA 06/05/2017 Office Visit Internal Medicine Maite Leon MD Essential hypertension (Primary Dx); Vitamin D deficiency; Pain in both hands; Need for Streptococcus pneumoniae vaccination 05/08/2017 Office Visit Orthopedic Surgery Juvencio Payne MD Lumbar post-laminectomy syndrome; Arthrodesis status 05/07/2017 Refill Orthopedic Surgery Juvencio Payne MD after 05/02/2017 Immunizations Name Dates Previously Given Next Due Hep B, Unspecified 06/24/2016 Hepatitis B 02/04/2017, 08/09/2016, 06/08/2016 INFLUENZA QUAD 04/08/2016, 04/03/2015, 05/03/2014 INFLUENZA QUAD PF 08/18/2013 Influenza Trivalent 04/11/2017, 05/29/2016, 04/08/2016 Pneumococcal Conjugate 04/08/2016 13-Valent Pneumococcal 06/05/2017, 05/29/2016 Polysaccharide Tetanus 01/31/2012 Zoster Vaccine 01/16/2018, 11/06/2017, 11/06/2017 Recombinant Family History Medical History Relation Name Comments [...] Vital Sign Reading Time Taken Blood Pressure 134/88 03/02/2018 11:13 AM CDT Pulse 62 03/02/2018 11:13 AM CDT Temperature 36.8 C (98.3 F) 03/02/2018 11:13 AM CDT Respiratory Rate 16 03/02/2018 11:13 AM CDT Oxygen Saturation 99% 03/02/2018 11:13 AM CDT Inhaled Oxygen - - Concentration Weight 108 kg (238 lb) 03/11/2018 2:18 PM CDT Height 180.3 cm (5' 11") 03/02/2018 11:13 AM CDT Body Mass Index 33.19 03/11/2018 2:18 PM CDT Plan of Treatment Date Type Specialty Care Team Description 06/01/2018 Appointment Radiology Qi Ferrari MD [address] [place] [address] 06/17/2018 Office Visit Orthopedic Surgery Juvencio Payne MD [address] [facility] [address] [place] [id number] Health Maintenance Due Date Last Done Comments DIABETIC FOOT EXAM 10/18/1967 DIABETIC RETINAL EYE EXAM 10/18/1967 ZOSTER VACCINE 2017 INFLUENZA VACCINE 02/18/2018 04/11/2017, 05/29/2016, 04/08/2016, Additional history exists COLON CANCER SCREENING 03/15/2026 03/15/2016, 02/12/2013, 02/12/2013, Additional history exists SHINGRIX VACCINE Completed 01/16/2018, 01/16/2018, 11/06/2017, Additional history exists Procedures Procedure Name Priority Date/Time Associated Diagnosis Comments XR LUMBAR SPINE 2 OR 3 VW Routine 03/11/2018 Spondylosis of lumbar Results for this 2:23 PM CDT region without myelopathy procedure are in the or radiculopathy results section. T4, FREE Routine 12/02/2017 Thyroid nodule Results for this 9:17 AM CDT procedure are in the results section. URINALYSIS, AUTOMATED Routine 12/02/2017 Essential hypertension Results for this WITH MICROSCOPY 9:17 AM CDT procedure are in the results section. THYROID STIMULATING Routine 12/02/2017 Thyroid nodule Results for this HORMONE 9:17 AM CDT procedure are in the results section. LIPID PANEL Routine 12/02/2017 Encounter for lipid Results for this 9:17 AM CDT screening for procedure are in the cardiovascular disease results section. COMPREHENSIVE METABOLIC Routine 12/02/2017 Encounter for lipid Results for this PANEL 9:17 AM CDT screening for procedure are in the cardiovascular disease results section. CBC WITH PLATELET AND Routine 12/02/2017 Essential hypertension Results for this DIFFERENTIAL 9:17 AM CDT procedure are in the results section. MICROALBUMIN / CREATININE Routine 12/02/2017 Essential hypertension Results for this URINE RATIO 9:17 AM CDT procedure are in the results section. US THYROID Routine 11/12/2017 Multinodular non-toxic Results for this 1:10 PM CDT goiter procedure are in the results section. VITAMIN D 25 HYDROXY Routine 09/04/2017 Vitamin D deficiency Results for this LEVEL 12:17 PM REPAIR OPERATOR procedure are in the results section. TB GOLD QUANTIFERON Routine 09/04/2017 Rheumatoid arthritis with Results for this 12:17 PM REPAIR OPERATOR positive rheumatoid procedure are in the factor, involving results section. unspecified site Screening-pulmonary TB COMPREHENSIVE METABOLIC Routine 09/04/2017 Rheumatoid arthritis with Results for this PANEL 12:17 PM REPAIR OPERATOR positive rheumatoid procedure are in the factor, involving results section. unspecified site CBC WITH PLATELET AND Routine 09/04/2017 Rheumatoid arthritis with Results for this DIFFERENTIAL 12:17 PM REPAIR OPERATOR positive rheumatoid procedure are in the factor, involving results section. unspecified site PNEUMOCOCCAL Routine 06/05/2017 Need for Streptococcus POLYSACCHARIDE VACCINE 11:11 AM REPAIR OPERATOR pneumoniae vaccination 23-VALENT=>2YO SQ IM SEDIMENTATION RATE Routine 05/07/2017 Results for this 12:00 AM CDT procedure are in the results section. VITAMIN D 25 HYDROXY Routine 05/07/2017 Bone disorder Results for this LEVEL 12:00 AM CDT procedure are in the results section. LIPID PANEL Routine 05/07/2017 Pure hypercholesterolemia Results for this 12:00 AM CDT procedure are in the results section. URINALYSIS, AUTOMATED Routine 05/07/2017 Essential hypertension Results for this WITH MICROSCOPY 12:00 AM CDT procedure are in the results section. COMPREHENSIVE METABOLIC Routine 05/07/2017 Essential hypertension Results for this PANEL 12:00 AM CDT procedure are in the results section. after 05/02/2017 Results * XR Lumbar Spine 2 Or 3 Vw (03/11/2018 2:23 PM) Narrative Performed At [facility] Lumbar spine x-rays and 2 views today reveal internal fixation devices at the L3-L4 level.Fusion appears intact at those levels.Postoperative fusion material is seen distal to that area.On the right, there is a slight question of a bony defect in the bone graft material.Degenerative changes are noted cephalad to the operated levels with lateral osteophytes and slight disc space narrowing Performing Organization Address City/[facility] Phone Number MARY [address] [place] [address] * Microalbumin / creatinine urine ratio (12/02/2017 9:17 AM) Creatinine, urine, random 118 20 - 370 mg/dL [facility] Microalbumin, urine <0.2 See Note: mg/dL [facility] Comment: [place] Reference Range: Reference Range Not established Microalbumin/creatinine NOTE <30 mcg/mg creat [facility] ratio Comment: [place] The microalbumin value is less than 0.2 mg/dL therefore we are unable to calculate excretion and/or creatinine ratio. The ADA defines abnormalities in albumin excretion as follows: Category Result (mcg/mg creatinine) Normal <30 Microalbuminuria 30-299 Clinical albuminuria > CC=162 The ADA recommends that at least two of three specimens collected within a 3-6 month period be abnormal before considering a patient to be within a diagnostic category. Specimen Urine Other Results Text Performing Organization Information: Site ID: [id number] Address: [address] [place] [phone] Director: Amber Short Performing Organization Address City/[facility] Phone Number [employer] [facility] [address] [address] * Urinalysis, automated with microscopy (12/02/2017 9:17 AM) Only the most recent of 2 results within the time period is included. Color, UA DARK YELLOW YELLOW [facility] Appearance CLEAR CLEAR [facility] Specific gravity, urine 1.012 1.001 - 1.035 [facility] pH, urine 7.5 5.0 - 8.0 [facility] Glucose, urine NEGATIVE NEGATIVE [facility] Bilirubin, UA NEGATIVE NEGATIVE [facility] [place] Ketones, UA NEGATIVE NEGATIVE [facility] [place] Occult blood, urine NEGATIVE NEGATIVE [facility] [place] Protein, UA NEGATIVE NEGATIVE [facility] [place] Nitrite, UA NEGATIVE NEGATIVE [facility] [place] Leukocyte esterase, UA NEGATIVE NEGATIVE [facility] WBC, UA NONE SEEN < OR=5 /HPF [facility] RBC, UA NONE SEEN < OR=2 /HPF [facility] Squamous epithelial NONE SEEN < OR=5 /HPF [facility] cells, [facility] [place] Bacteria, UA NONE SEEN NONE SEEN /HPF [facility] Hyaline casts, UA NONE SEEN NONE SEEN /LPF [facility] Specimen Urine Other Results Text Performing Organization Information: Site ID: [id number] Name: [facility] Address: [address] [place] [id number] Director: Amber Short Performing Organization Address City/State/Zipcode Phone Number [place] [place] [address] * CBC with platelet and differential (12/02/2017 9:17 AM) Only the most recent of 2 results within the time period is included. WBC 5.8 3.8 - 10.8 Thousand/uL [facility] RBC 4.63 4.20 - 5.80 Million/uL [facility] HGB 15.7 13.2 - 17.1 g/dL [facility] HCT 45.8 38.5 - 50.0 % [facility] MCV 98.9 80.0 - 100.0 fL [facility] MCH 33.9 (H) 27.0 - 33.0 pg [facility] MCHC 34.3 32.0 - 36.0 g/dL [facility] RDW 11.9 11.0 - 15.0 % [facility] Platelet count 347 140 - 400 Thousand/uL [facility] MPV 9.9 7.5 - 12.5 fL [facility] Neutrophils, absolute 2,981 1,500 - 7,800 cells/uL [facility] Lymphocytes, absolute 1,868 850 - 3,900 cells/uL [facility] Monocytes, absolute 603 200 - 950 cells/uL [facility] Eosinophils, absolute 307 15 - 500 cells/uL [facility] Basophils, absolute 41 0 - 200 cells/uL [facility] [employer] [facility] Neutrophils 51.4 % [facility] [employer] [facility] Lymphocytes 32.2 % [facility] Monocytes 10.4 % [facility] Eosinophils 5.3 % [employer] [facility] Basophils + RC 0.7 % [facility] Specimen Blood Other Results Text Performing Organization Information: Site ID: [facility] Name: [facility] Address: [address] [place] [phone] Director: Amber Short Performing Organization Address [facility] Phone Number [facility] [employer] [address] [address] * Thyroid stimulating hormone (12/02/2017 9:17 AM) TSH 0.82 0.40 - 4.50 mIU/L [facility] Specimen Blood Other Results Text Performing Organization Information: Site ID: [facility] Name: [facility] Address: [address] [place] [phone] Director: Amber Short Performing Organization Address [facility] Phone Number [facility] [employer] [address] [address] * T4, free (12/02/2017 9:17 AM) T4, free 1.5 0.8 - 1.8 ng/dL [facility] Specimen Blood Other Results Text Performing Organization Information: Site ID: [facility] Name: [facility] Address: [address] [place] [phone] Director: Amber Short Performing Organization Address [facility] Phone Number [facility] [employer] [address] [address] * Lipid panel (12/02/2017 9:17 AM) Only the most recent of 2 results within the time period is included. Cholesterol, total 200 (H) <200 mg/dL [facility] HDL cholesterol 59 >40 mg/dL [facility] Triglycerides 101 <150 mg/dL [facility] LDL cholesterol 121 (H) mg/dL (calc) [facility] calculated Comment: [place] Reference range: <100 Desirable range <100 mg/dL for primary prevention; <70 mg/dL for patients with CHD or diabetic patients with > or=2 CHD risk factors. LDL-C is now calculated using the Benita calculation, which is a validated novel method providing better accuracy than the Friedewald equation in the estimation of LDL-C. Deshawn SS et al. JANNA. 2013;310(19): 5950-2492 (http://education.trueEX/faq/EPL756) Cholesterol/HDL ratio 3.4 <5.0 (calc) [facility] Non-HDL cholesterol 141 (H) <130 mg/dL (calc) [facility] Comment: [place] For patients with diabetes plus 1 major ASCVD risk factor, treating to a non-HDL-C goal of <100 mg/dL (LDL-C of <70 mg/dL) is considered a therapeutic option. Specimen Blood Other Results Text Performing Organization Information: Site ID: [id number] Name: [facility] Address: [address] [place] [phone] Director: Amber Short Performing Organization Address City/State/[place] [address] * Comprehensive metabolic panel (12/02/2017 9:17 AM) Only the most recent of 3 results within the time period is included. Glucose 102 (H) 65 - 99 mg/dL [facility] [employer] [facility] Comment: [place] Fasting reference interval For someone without known diabetes, a glucose value between 100 and 125 mg/dL is consistent with prediabetes and should be confirmed with a follow-up test. BUN, whole blood 10 7 - 25 mg/dL [facility] Creatinine 0.97 0.70 - 1.25 mg/dL [facility] Comment: [place] For patients >49 years of age, the reference limit for Creatinine is approximately 13% higher for people identified as -Moldovan. EGFR Non-Afr. [place] 84 > OR=60 mL/min/1.73m2 [facility] EGFR 98 > OR=60 mL/min/1.73m2 [facility] [employer] [facility] BUN/creatinine ratio NOT APPLICABLE 6 - 22 (calc) [facility] Sodium 138 135 - 146 mmol/L [facility] Potassium 4.5 3.5 - 5.3 mmol/L [facility] [employer] [facility] Chloride 99 98 - 110 mmol/L [employer] CO2 31 20 - 31 mmol/L [facility] Calcium 10.0 8.6 - 10.3 mg/dL [facility] Protein 6.8 6.1 - 8.1 g/dL [facility] Albumin, S 4.3 3.6 - 5.1 g/dL [facility] Globulin, total 2.5 1.9 - 3.7 g/dL (calc) [facility] Albumin/globulin ratio 1.7 1.0 - 2.5 (calc) [facility] Total bilirubin 1.7 (H) 0.2 - 1.2 mg/dL [facility] Alkaline phosphatase 75 40 - 115 U/L [facility] AST 22 10 - 35 U/L [facility] ALT 19 9 - 46 U/L [facility] Specimen Blood Other Results Text Performing Organization Information: Site ID: [id number]: [facility] Address: [address] [place] [phone] Director: Amber Short Performing Organization Address City/State/Zipcode Phone Number [facility] [employer] [place] [address] * US Thyroid (11/12/2017 1:10 PM) Narrative Performed At EXAMINATION:US THYROID [facility] CLINICAL HISTORY:E04.2 Nontoxic multinodular goiter, GOITER COMPARISON:April 10, 2017 FINDINGS: The right lobe is enlarged and heterogeneous it measures 8.4 x 4.1 x 4.0 cm. It is grossly heterogeneous. A nodule in the upper pole medially measures approximately 7 x 6 x 8 mm which is not significantly changed. This is consistent with a T-RADS 2 nodule which is not suspicious. A nodule in the mid right lobe posteriorly measures 1.9 x 1.4 x 1.7 cm which is slightly increased since previous previously measuring 1.7 cm in maximum dimension. Mixed cystic and solid areas are relatively well-circumscribed. It is wider than tall it is mixed hypo and isoechoic no punctate echogenic foci are identified. This is consistent with a TI-RADS 2 lesion which has a low level suspicion. There is a 1.6 cm isoechoic well-circumscribed nodule in the right lobe anteriorly in the midportion.. This is not as well imaged previously although given the gross heterogeneity of the gland and its very large size may have been present previously. It has mixed cystic and solid composition. It is hyperechoic to isoechoic it is relatively well-defined without well-defined calcifications. This is a T-RADS Category3 lesion and given its size short-term follow-up is recommended. The isthmus demonstrates a decrease in size from 2.2 to 1.7 cm in maximum dimension. This is a T RADS 3 lesion as well short-term follow-up is suggested The left lobe measures 8.6 x 3.6 x 5.0 cm. There is a 1.6 x 1.1 x 1.8 cm nodule in the midportion previously measuring 1.7 cm in maximum dimension. This is spongiform, isoechoic well-defined without calcifications is consistent with a T RADS 2 lesion. Another 1.1 cm nodule in the mid portions is also a tight RADS 2 lesion it is well-circumscribed spongiform in character without worrisome features. A third echogenic 1.2 cm hyperechoic lower pole nodule has an appearance overall suggesting a quite munoz lesion often associated with thyroiditis with T-RADS 2 lesion. IMPRESSION: 1. Multiple thyroid nodules as described. The largest is a 1.9 cm nodule in the right lobe posteriorly minimally increased from previous this consistent with a tight RADS 2 lesion however T RADS 3 lesion is present involving the anterior right lobe not clearly present previously follow-up is suggested 2. Multiple additional T RADS 2 lesions in the isthmus and left lobe [id number] Procedure Note Hm Interface, Radiology Results Incoming - 11/12/2017 2:40 PM CDT EXAMINATION: US THYROID CLINICAL HISTORY: E04.2 Nontoxic multinodular goiter, GOITER COMPARISON: April 10, 2017 FINDINGS: The right lobe is enlarged and heterogeneous it measures 8.4 x 4.1 x 4.0 cm. It is grossly heterogeneous. A nodule in the upper pole medially measures approximately 7 x 6 x 8 mm which is not significantly changed. This is consistent with a T-RADS 2 nodule which is not suspicious. A nodule in the mid right lobe posteriorly measures 1.9 x 1.4 x 1.7 cm which is slightly increased since previous previously measuring 1.7 cm in maximum dimension. Mixed cystic and solid areas are relatively well-circumscribed. It is wider than tall it is mixed hypo and isoechoic no punctate echogenic foci are identified. This is consistent with a TI-RADS 2 lesion which has a low level suspicion. There is a 1.6 cm isoechoic well- circumscribed nodule in the right lobe anteriorly in the midportion.. This is not as well imaged previously although given the gross heterogeneity of the gland and its very large size may have been present previously. It has mixed cystic and solid composition. It is hyperechoic to isoechoic it is relatively well-defined without well-defined calcifications. This is a T-RADS Category 3 lesion and given its size short-term follow-up is recommended. The isthmus demonstrates a decrease in size from 2.2 to 1.7 cm in maximum dimension. This is a T RADS 3 lesion as well short-term follow-up is suggested The left lobe measures 8.6 x 3.6 x 5.0 cm. There is a 1.6 x 1.1 x 1.8 cm nodule in the midportion previously measuring 1.7 cm in maximum dimension. This is spongiform, isoechoic well-defined without calcifications is consistent with a T RADS 2 lesion. Another 1.1 cm nodule in the mid portions is also a tight RADS 2 lesion it is well-circumscribed spongiform in character without worrisome features. A third echogenic 1.2 cm hyperechoic lower pole nodule has an appearance overall suggesting a quite munoz lesion often associated with thyroiditis with T-RADS 2 lesion. IMPRESSION: 1. Multiple thyroid nodules as described. The largest is a 1.9 cm nodule in the right lobe posteriorly minimally increased from previous this consistent with a tight RADS 2 lesion however T RADS 3 lesion is present involving the anterior right lobe not clearly present previously follow-up is suggested 2. Multiple additional T RADS 2 lesions in the isthmus and left lobe [id number] Performing Organization Address City/State/Zipcode Phone Number [facility] [address] [place] [address] * TB GOLD Quantiferon (09/04/2017 12:17 PM) Quantiferon TB gold NEGATIVE NEGATIVE [facility] Comment: [place] Negative test result. M. tuberculosis complex infection unlikely. Quantiferon NIL value 0.05 IU/mL [employer] [facility] [place] Quantiferon mitogen NIL >10.00 IU/mL [facility] value [place] Quantiferon TB NIL value 0.03 IU/mL [facility] [employer] [facility] Comment: [place] The Nil tube value is used to [...] IU/mL. For additional information, please refer to http://education.Handle.[facility]/faq/QFT (This link is being provided for informational/ educational purposes only.) Specimen Blood Other Results Text Performing Organization Information: Site ID: [id number] Name: [facility] Address: [address] [place] [phone] Director: Amber Short MD Performing Organization Address City/State/Zipcode Phone Number [place] [place] [address] * Vitamin D 25 hydroxy level (09/04/2017 12:17 PM) Only the most recent of 2 results within the time period is included. Vitamin D, 25-hydroxy 38 30 - 100 ng/mL [facility] Comment: [place] Vitamin D Status 25-OH Vitamin D: Deficiency: <20 ng/mL Insufficiency: 20 - 29 ng/mL Optimal: > or=30 ng/mL For 25-OH Vitamin D testing on patients on D2-supplementation and patients for whom quantitation of D2 and D3 fractions is required, the QuestAssureD(TM) 25-OH VIT D, (D2,D3), LC/MS/MS is recommended: order code [id number] (patients >2yrs). For more information on this test, go to: http://education.Handle.[facility]/faq/HXE609 (This link is being provided for informational/educational purposes only.) Specimen Blood Other Results Text Performing Organization Information: Site ID: [id number] Name: [facility] Address: [address] [place] [phone] Director: Amber Short MD Performing Organization Address City/[facility] Phone Number [employer] [place] [address] * Pneumococcal polysaccharide vaccine 23-valent greater than or equal to 2yo subcutaneous/IM (06/05/2017 11:11 AM) * Sedimentation rate (05/07/2017) Sedimentation rate 6 < OR=20 mm/h [facility] [place] Other Results Text Performing Organization Information: Site ID: [id number] Name: [facility] Address: [address] [place] [id number] Director: Amber Short MD Performing Organization Address [facility] Phone Number [employer] [place] [address] after 05/02/2017 Insurance Payer Benefit Subscriber ID Type Phone Address Plan / Group WORKERS COMP MISC xxxxx Workers WORKER'S Comp COMP AETNA MEDICARE AETNA xxxxxxxx HMO MEDICARE HMO/PPO [facility] Home: [id number] Workers Employer 1955 Work: [id number] [place] [address] Home:
== END 2018-05-03 06:30 | disposition home or self-care (01) ==
LOC: ER 03:05
DX: G44.1 Vascular headache, not elsewhere classified (principal); F14.90 Cocaine use, unspecified, uncomplicated; F17.210 Nicotine dependence, cigarettes, uncomplicated
CPT/HCPCS: 70450; 99282